=== PATIENT | female | born 1980 | race Hispanic/Latino ===

== ENCOUNTER 2017-09-13 11:13 | Emergency (ER) | payer MEDICAID, OTHER ==
[2017-09-13 11:32] VITALS: BMI 26.6
[2017-09-13 11:33] VITALS: BP 141/91; PULSE 86; RESP 17; TEMP 99; O2SAT 99
--- NOTE | 2017-09-13 12:38 | ED PDOC ---
HPI: CCC, URI, Sore Throat Time Seen by Provider: 09/13/17 12:14 Chief Complaint (Nursing): ENT Problem Chief Complaint (Provider): Throat pain History Per: Patient History/Exam Limitations: no limitations Have you had recent travel within the past 21 days to any of the following countries: [place], [place], [place] or [place]?: No Onset/Duration Of Symptoms: Days Current Symptoms Are (Timing): Still Present Location Of Pain: Throat, Other Associated Symptoms: Fever (tactile), Sore Throat, Cough Ear Symptoms: Bilateral: None Additional History Per: Patient Additional Complaint(s): 36yo female, no past medical history, presents to ED for evaluation of throat pain and swelling for the past 4 days. Patient states she noticed some white coloring in her mouth, and reports associated tactile fever, and a nonproductive cough. She also states she had left over antibiotics (Amoxicillin 500mg) which she has been taking Q8 hours for the past 4 days, last dose was this morning. She reports the symptoms have improved since onset. Otherwise: (- ) chills, (-) chest pain, (-) dyspnea, (-) hemoptysis, (-) travel, (-) recent prolonged immobility. Past Medical History Reviewed: Historical Data, Nursing Documentation, Vital Signs Vital Signs: Last Vital Signs Temp 99 F 09/13/17 11:32 Pulse 86 09/13/17 11:32 Resp 17 09/13/17 11:32 BP 141/91 H 09/13/17 11:32 Pulse Ox 99 09/13/17 13:53 - Medical History PMH: Anxiety, Asthma - Surgical History Surgical History: No Surg Hx - Family History Family History: States: No Known Family Hx - Home Medications Home Medications: Ambulatory Orders Medication Instructions Recorded Amoxicillin 875 mg PO BID #14 tablet 09/13/17 Ibuprofen [Motrin] 600 mg PO Q6 #24 tab 09/13/17 - Allergies Allergies/Adverse Reactions: Allergies Allergy/AdvReac Type Severity Reaction Status Date / Time No Known Allergies Allergy Verified 09/13/17 11:31 Review of Systems ROS Statement: Except As Marked, All Systems Reviewed And Found Negative Constitutional: Positive for: Fever (tactile). Negative for: Chills ENT: Positive for: Throat Pain, Throat Swelling Cardiovascular: Negative for: Chest Pain Respiratory: Positive for: Cough. Negative for: Shortness of Breath Physical Exam - Reviewed Nursing Documentation Reviewed: Yes Vital Signs Reviewed: Yes - Physical Exam Comments: GENERAL: Patient awake, alert and oriented; no acute distress. SKIN: Warm, dry; (-) cyanosis. EYES: (-) conjunctival pallor. ENMT: Mucous membranes moist. Airway patent: (-) stridor. Pharynx: (+) 3+ tonsilar hypertrophy, (+) erythema, (+) bilateral exudate. Uvula midline. (-) stridor (-) drooling. TMs (-) bulging (-) erythema (-) vesicles. Nares patent. NECK: Supple. FROM (-) tenderness, (-) stiffness, (-) lymphadenopathy. CHEST AND RESPIRATORY: (-) rhonchi, (-) rales, (-) wheezes, (-) pleural rub; breath sounds equal bilaterally. Speaking in full sentences, respirations even and nonlabored. HEART AND CARDIOVASCULAR: (-) irregularity; (-) murmur, (-) gallop. NEURO AND PSYCH: Mental status as above. Gait steady. - ECG O2 Sat by Pulse Oximetry: 99 (RA) Pulse Ox Interpretation: Normal Medical Decision Making Medical Decision Making: Impression: Tonsillitis Plan: -- Decadron 10mg IM -- Re-eval 1320 On re-evaluation, patient reports improvement of symptoms, denies difficulty swallowing or speaking. On exam, patient remains AAOx3, in no acute distress. On exam, neck is supple, lungs CTA, cardiac RRR, abdomen is soft and non-tender , neuro exam shows no focal findings. VSS. Diagnostic results d/w the patient in great detail. Dx of acute throat pain, tonsillitis with exudate d/w the patient. Based on history, exam and diagnostic results plan will be for discharge and outpatient follow up. Advised to follow up with primary care physician in 1-2 days without fail. Advised to take medication as prescribed. Return to the emergency room at any time for any new or worsening symptoms. Patient states she fully agrees with and understands discharge instructions. States that she agrees with the plan and disposition. Verbalized and repeated discharge instructions and plan. I have given the patient opportunity to ask any additional questions. Scribe Attestation: Documented by Mounika Washburn acting as a scribe for FRANCIA Woo Provider Attestation: All medical record entries made by the Scribe were at my direction and personally dictated by me. I have reviewed the chart and agree that the record accurately reflects my personal performance of the history, physical exam, medical decision making, and the department course for this patient. I have also personally directed, reviewed, and agree with the discharge instructions and disposition. Disposition - Clinical Impression Clinical Impression: Tonsillitis with exudate, Throat pain in adult, Cough - Patient ED Disposition Is Patient to be Admitted: No Counseled Patient/Family Regarding: Diagnosis, Need For Followup, Rx Given - Disposition Referrals: Mina Bell MD [Staff Provider] - Disposition: Routine/Home Disposition Time: 13:23 Condition: STABLE Prescriptions: Amoxicillin 875 mg PO BID #14 tablet Ibuprofen [Motrin] 600 mg PO Q6 #24 tab Instructions: Sore Throat in Adults Forms: [facility] (Bengali), [facility] ED School/Work Excuse Print Language: MALAY - POA Present On Arrival: None
== END 2017-09-13 13:45 | disposition home or self-care (01) ==
LOC: H.ER 11:13
DX: J03.90 Acute tonsillitis, unspecified (principal); J02.9 Acute pharyngitis, unspecified; R05 Cough; J45.909 Unspecified asthma, uncomplicated
CPT/HCPCS: 96372; 99282; J1100

== ENCOUNTER 2017-10-21 18:22 | Emergency (ER) | payer OTHER ==
[2017-10-21 18:22] VITALS: BMI 26.6
[2017-10-21 18:30] VITALS: BP 148/66; PULSE 84; RESP 18; TEMP 98.2; O2SAT 99
[2017-10-21] MEDS ORDERED: Fluconazole 150 MG TAB PO STA (18:50)
--- NOTE | 2017-10-21 18:58 | ED PDOC ---
HPI: CCC, URI, Sore Throat Time Seen by Provider: 10/21/17 18:37 Chief Complaint (Nursing): ENT Problem Chief Complaint (Provider): throat pain History Per: Patient Additional Complaint(s): 36 y/o female presents with sore throat and tongue irritation for 1 week. Patient was treated 3 weeks ago for tonsillitis and completed a ten-day course of amoxicillin. She was then started on another course of amox from her dentist for dental infection. Soon after completion of second course she noticed white rash on tongue and states that it feels sore and swollen again. Patient is tolerating liquids and solids. She denies any fever or chills. Patient states she is prone to yeast infections especially when taking amoxicillin. Past Medical History Reviewed: Historical Data, Nursing Documentation, Vital Signs Vital Signs: Last Vital Signs Temp 98.2 F 10/21/17 18:28 Pulse 84 10/21/17 18:28 Resp 18 10/21/17 18:28 BP 148/66 10/21/17 18:28 Pulse Ox 99 10/21/17 18:58 - Medical History PMH: Anxiety, Asthma - Surgical History Surgical History: No Surg Hx - Family History Family History: States: No Known Family Hx - Living Arrangements Living Arrangements: With Family - Social History Current smoker - smoking cessation education provided: Yes Alcohol: None Drugs: Denies - Home Medications Home Medications: Ambulatory Orders Medication Instructions Recorded Amoxicillin 875 mg PO BID #14 tablet 09/13/17 Ibuprofen [Motrin] 600 mg PO Q6 #24 tab 09/13/17 Azithromycin [Zithromax] 250 mg PO DAILY #6 tab 10/21/17 Nystatin [Nystatin Oral Susp] 5 ml PO QID #150 ml 10/21/17 - Allergies Allergies/Adverse Reactions: Allergies Allergy/AdvReac Type Severity Reaction Status Date / Time No Known Allergies Allergy Verified 10/21/17 18:27 Review of Systems ROS Statement: Except As Marked, All Systems Reviewed And Found Negative Constitutional: Negative for: Fever, Chills ENT: Positive for: Throat Pain, Throat Swelling, Other (rash to tongue) Respiratory: Negative for: Cough Gastrointestinal: Negative for: Nausea, Vomiting Neurological: Negative for: Headache, Dizziness Physical Exam - Reviewed Nursing Documentation Reviewed: Yes Vital Signs Reviewed: Yes - Physical Exam Appears: Positive for: Well, Non-toxic, No Acute Distress Skin: Negative for: Rash Eye Exam: Positive for: Normal appearance ENT: Positive for: Pharyngeal Erythema, Tonsillar Swelling, Other (thrush noted to tongue) Cardiovascular/Chest: Positive for: Regular Rate, Rhythm Respiratory: Positive for: Normal Breath Sounds Extremity: Positive for: Normal ROM Neurologic/Psych: Positive for: Alert, Oriented - Laboratory Results Urine POC: Negative - ECG O2 Sat by Pulse Oximetry: 99 Pulse Ox Interpretation: Normal Medical Decision Making Medical Decision Making: Impression: Tonsillitis and thrush. Plan: test Throat culture Diflucan 150 mg dose in ED Prescriptions given for Zithromax and nystatin oral wash. Advised ENT follow-up in 2-3 days, referral given. Disposition - Clinical Impression Clinical Impression: Thrush, oral, Tonsillitis - Patient ED Disposition Is Patient to be Admitted: No Counseled Patient/Family Regarding: Studies Performed, Diagnosis, Need For Followup, Rx Given - Disposition Referrals: Buster Hicks MD [Staff Provider] - Disposition: Routine/Home Disposition Time: 19:14 Condition: STABLE Additional Instructions: Take prescription meds as directed. Advil or Tylenol for pain as needed. Follow up with ear, nose and throat specialist for any persistent symptoms. Prescriptions: Azithromycin [Zithromax] 250 mg PO DAILY #6 tab Nystatin [Nystatin Oral Susp] 5 ml PO QID #150 ml Instructions: Thrush, Sore Throat in Adults Forms: [facility] (Lao)
== END 2017-10-21 20:11 | disposition home or self-care (01) ==
LOC: H.ER 18:22
DX: J02.9 Acute pharyngitis, unspecified (principal); B37.0 Candidal stomatitis; F41.9 Anxiety disorder, unspecified

== ENCOUNTER 2017-11-11 19:17 | Emergency (ER) | payer OTHER ==
[2017-11-11 19:17] VITALS: BMI 26.6
[2017-11-11 19:30] VITALS: O2SAT 100
--- NOTE | 2017-11-11 20:44 | ED PDOC ---
HPI: General Adult Time Seen by Provider: 11/11/17 19:40 Chief Complaint (Nursing): ENT Problem Chief Complaint (Provider): ENT Problem History Per: Patient History/Exam Limitations: no limitations Onset/Duration Of Symptoms: Days Have you had recent travel within the past 21 days to any of the following countries: [place], [place], [place] or [place]?: No Current Symptoms Are (Timing): Still Present Additional Complaint(s): 37 y/o female with a history of thrush presents to the ED for lesions to her tongue. Patient states she was recently diagnosed with thrush after she had used amoxicillin for a throat infection. She was prescribed Nystatin and was erroneously swishing and spitting but not drinking fluids after using the antibiotic. Patient felt it improved however in the last 2 days she has felt a reoccurrence of the thrush. She denies any nausea, vomiting, SOB, or cough. Of note, patient has been prone to vaginal infections in the past. PMD: Pablo Curtis Past Medical History Reviewed: Historical Data, Nursing Documentation, Vital Signs Vital Signs: Last Vital Signs Temp 97.8 F 11/11/17 21:40 Pulse 66 11/11/17 21:40 Resp 16 11/11/17 21:40 BP 124/76 11/11/17 21:40 Pulse Ox 100 11/11/17 21:40 - Medical History PMH: Anxiety, Asthma - Surgical History Surgical History: No Surg Hx - Family History Family History: States: No Known Family Hx - Social History Current smoker - smoking cessation education provided: Yes Alcohol: Occasional Drugs: Denies - Home Medications Home Medications: Ambulatory Orders Medication Instructions Recorded Amoxicillin 875 mg PO BID #14 tablet 09/13/17 Ibuprofen [Motrin] 600 mg PO Q6 #24 tab 09/13/17 Azithromycin [Zithromax] 250 mg PO DAILY #6 tab 10/21/17 Nystatin [Nystatin Oral Susp] 5 ml PO QID #150 ml 10/21/17 Nystatin [Nystatin Oral Susp] 5 ml PO QID 14 Days 11/11/17 - Allergies Allergies/Adverse Reactions: Allergies Allergy/AdvReac Type Severity Reaction Status Date / Time No Known Allergies Allergy Verified 10/21/17 18:27 Review of Systems ROS Statement: Except As Marked, All Systems Reviewed And Found Negative ENT: Positive for: Throat Pain (due to thrush) Respiratory: Negative for: Cough, Shortness of Breath Gastrointestinal: Negative for: Nausea, Vomiting Skin: Positive for: Lesions (on tongue) Physical Exam - Reviewed Nursing Documentation Reviewed: Yes Vital Signs Reviewed: Yes - Physical Exam Appears: Positive for: Well, Non-toxic, No Acute Distress Head Exam: Positive for: ATRAUMATIC, NORMAL INSPECTION, NORMOCEPHALIC Skin: Positive for: Normal Color, Warm, Dry Eye Exam: Positive for: EOMI, Normal appearance, PERRL ENT: Positive for: Other (mild thrush to tongue) Neck: Positive for: Normal, Painless ROM, Supple Cardiovascular/Chest: Positive for: Regular Rate, Rhythm. Negative for: Murmur Respiratory: Positive for: Normal Breath Sounds. Negative for: Respiratory Distress Gastrointestinal/Abdominal: Positive for: Normal Exam, Soft. Negative for: Tenderness Back: Positive for: Normal Inspection. Negative for: L CVA Tenderness, R CVA Tenderness, Vertebral Tenderness Extremity: Positive for: Normal ROM. Negative for: Pedal Edema, Deformity Neurologic/Psych: Positive for: Alert, Oriented (x3) - Laboratory Results Result Diagrams: 11/11/17 20:40 11/11/17 20:40 - ECG O2 Sat by Pulse Oximetry: 100 (RA) Pulse Ox Interpretation: Normal Medical Decision Making Medical Decision Making: Time: 19:27 Impression: Recurrent thrush given reoccurrence with antibiotics Initial Plan: * CMP * Urine Test * CBC * HIV Rapid Test Labs reviewed and found to have no clinical abnormalities. Patient is stable for discharge and diagnosed with thrush. Patient will be sent home with Nystatin and shown correct usage of medication. She is to follow-up with PMD or health center. Scribe Attestation: Documented by Deon Wiklins acting as a scribe for Clark Berry MD. MD Pres[place] Attestation: All medical record entries made by the [place] were at my direction and personally dictated by me. I have reviewed the chart and agree that the record accurately reflects my personal performance of the history, physical exam, medical decision making, and the department course for this patient. I have also personally directed, reviewed, and agree with the discharge instructions and disposition. Disposition - Clinical Impression Clinical Impression: Thrush - Disposition Referrals: [facility] [Outside] Disposition: Discharged to Home Care Disposition Time: 21:50 Condition: STABLE Prescriptions: Nystatin [Nystatin Oral Susp] 5 ml PO QID 14 Days Instructions: Thrush Forms: [facility] (Yakut)
[2017-11-11 20:49] LABS: BASO # 0.1 K/uL (0.0-0.2); BASO % 0.8 % (0.0-2.0); EOS # 0.3 K/uL (0.0-0.7); EOS % 2.4 % (0.0-4.0); HEMOGLOBIN 13.3 g/dL (12.0-16.0); LYMPH # 4.9 K/uL (1.0-4.3); LYMPH % 42.8 % (20.0-40.0); MEAN CELL VOLUME 88.6 fl (81.0-99.0); MEAN CORPUSCULAR HEMOGLOBIN 29.8 pg (27.0-31.0); MEAN CORPUSCULAR HGB CONC 33.7 g/dL (33.0-37.0); MEAN PLATELET VOLUME 8.2 fl (7.2-11.7); MONO # 0.6 K/uL (0.0-0.8); MONO % 5.1 % (0.0-10.0); NEUT # 5.5 K/uL (1.8-7.0); NEUT % 48.9 % (50.0-75.0); RBC 4.47 Mil/uL (3.80-5.20); WHITE BLOOD COUNT 11.4 K/uL (4.8-10.8)
[2017-11-11 20:56] LABS: ALB/GLOB RATIO 1.2 (1.0-2.1); ALBUMIN 3.9 g/dL (3.5-5.0); ALT/SGPT 34 U/L (9-52); AST/SGOT 19 U/L (14-36); BLOOD UREA NITROGEN 15 mg/dl (7-17); CALCIUM 9.6 mg/dL (8.4-10.2); GFR AFRICAN-AMERICAN > 60; GFR NON-AFRICAN AMERICAN > 60
[2017-11-11 21:54] VITALS: BP 124/76; PULSE 66; RESP 16; TEMP 97.8
== END 2017-11-11 21:40 | disposition home or self-care (01) ==
LOC: H.ER 19:17
DX: B37.0 Candidal stomatitis (principal); F17.200 Nicotine dependence, unspecified, uncomplicated; F41.9 Anxiety disorder, unspecified; J45.909 Unspecified asthma, uncomplicated